=== PATIENT | male | born 1960 | race Caucasian/White ===

== ENCOUNTER 2020-07-29 16:10 | Emergency (ER) | payer OTHER ==
[~2020-07-29] VITALS: Ht 193 cm; Wt 141.5 kg
[2020-07-29 16:38] LABS: BASOPHILS ABSOLUTE AUTO 0.06 K/mm3 (0.00-0.23); BASOPHILS PERCENT AUTO 1 % (0-2); EOSINOPHILS ABSOLUTE AUTO 0.04 K/mm3 (0.00-0.68); EOSINOPHILS PERCENT AUTO 0 % (0-6); Hematocrit 52.1 % (37.0-53.0); Hemoglobin 17.7 g/dL (13.5-17.5); IMMATURE GRAN ABSOLUTE AUTO 0.08 K/mm3 (0.00-0.10); IMMATURE GRAN PERCENT AUTO 1 % (0-1); LYMPHOCYTES ABSOLUTE AUTO 2.03 K/mm3 (0.84-5.20); LYMPHOCYTES PERCENT AUTO 19 % (21-46); MONOCYTES ABSOLUTE AUTO 1.03 K/mm3 (0.16-1.47); MONOCYTES PERCENT AUTO 10 % (4-13); Mean Corpuscular HGB 31.5 pg (26.0-34.0); Mean Corpuscular Volume 93 fL (80-100); Mean Platelet Volume 11.3 fL (9.1-12.4); NEUTROPHILS ABSOLUTE AUTO 7.21 K/mm3 (1.96-9.15); NEUTROPHILS PERCENT AUTO 69 % (41-73); Platelet Count 261 K/mm3 (150-400); RDW Coefficient Variation 12.9 % (11.7-14.2); RDW Standard Deviation 43.7 fL (35.1-46.3); Red Blood Cell Count 5.62 M/mm3 (4.30-5.90); White Blood Cell Count 10.45 K/mm3 (4.00-11.30)
[2020-07-29 16:51] LABS: Alanine Aminotransfer (ALT/SGP 91 U/L (12-78); Alk Phos 101 U/L (50-136); Anion Gap 4 mmol/L (6-16); Aspartate Aminotrans (AST/SGOT 55 U/L (12-37); Bilirubin, Total 0.6 mg/dL (0.1-1.0); Blood Urea Nitrogen 28 mg/dL (8-24); Bun/Creatinine Ratio 20.1 (12.0-20.0); CO2, Blood 25 mmol/L (21-32); Calcium, Blood 9.6 mg/dL (8.5-10.1); Chloride, Blood 107 mmol/L (98-108); Creatinine, Blood 1.39 mg/dL (0.60-1.20); Globulin, Blood 4.1 g/dL (2.2-4.0); Glomerular Filtration Rate 55 (60-); Glucose, Blood 103 mg/dL (70-99); Potassium, Blood 4.9 mmol/L (3.5-5.5); Sodium, Blood 136 mmol/L (136-145); Total Protein, Blood 8.1 g/dL (6.4-8.2); Troponin I <0.015 ng/mL (0.000-0.040)
== END 2020-07-29 18:01 | disposition home or self-care (01) ==
LOC: ER 16:10
PROVIDERS: Emergency Medicine
DX: I48.0 Paroxysmal atrial fibrillation (principal)
CPT/HCPCS: 71045; 80053; 84484; 85025; 92960; 93005; 93010; 99285-25; J2704; J7030

== ENCOUNTER 2020-11-09 16:14 | Emergency (ER) | payer OTHER ==
[~2020-11-09] VITALS: Ht 195.6 cm; Wt 136.1 kg
[2020-11-09] MEDS ORDERED: METO100ER PO (18:07)
[2020-11-09] MEDS ORDERED: ALDACTONE25 MG PO (18:08)
[2020-11-09 18:27] LABS: Bun/Creatinine Ratio 17.5 (12.0-20.0); Calcium, Blood 8.5 mg/dL (8.5-10.1); Creatinine, Blood 1.89 mg/dL (0.60-1.20); Potassium, Blood 4.5 mmol/L (3.5-5.5)
== END 2020-11-10 00:03 | disposition home or self-care (01) ==
LOC: ER 16:14
PROVIDERS: Emergency Medicine
DX: U07.1 COVID-19 (principal); N28.9 Disorder of kidney and ureter, unspecified
CPT/HCPCS: 76770; 80048; 84484; 93005; 93010; 96360; 99285-25; M0243; Q0243

== ENCOUNTER 2021-09-30 07:15 | Day surgery (SDC) | payer OTHER ==
[~2021-09-30] VITALS: Ht 193 cm; Wt 145.7 kg
[~2021-09-30 07:15] MED LIST: ALDACTONE25 MG PO; ASPI81CH PO; CYCL10 PO; METO100ER PO
--- NOTE | 2021-09-30 08:09 | NUR ---
Patient up to Ambulate independently. Gait steady. Edie Paws warming gown applied. Surgical site prepped with 2% Chlorhexidine cloth wipe. History, Chart, Medications and Allergies reviewed before start of procedure.Lungs clear T/O to Auscultation. Patient confirms NPO status and agrees with scheduled surgery. Pre-Op teaching done. Pt verbalizes understanding. Patient States Post-Procedure ride home has been arranged. Patient reports completing Chlorhexadine shower X2 prior to admission to hospital.
--- NOTE | 2021-09-30 10:33 | NUR ---
SITTING UP EATING CRACKERS, PUDDING AND DRINKING JUICE. DRESSING CDI
--- NOTE | 2021-09-30 10:53 | NUR ---
Patient up to Ambulate independently. Gait steady. Discharge instructions reviewed with patient. Patient verbalizes understanding. Copy given to patient to take home. Discharged via wheelchair to private car for ride home [facility].
--- NOTE | 2021-09-30 11:04 | NUR ---
LATE ENTRY: DRESSING CDI
== END 2021-09-30 22:37 | disposition home or self-care (01) ==
LOC: ORSCMMR 07:15 → ORD 08:45 → ORSCMMR 08:45
PROVIDERS: Surgery
PROC: 0JB70ZZ Excision of Back Subcutaneous Tissue and Fascia, Open Approach (ICD-10-PCS; principal; 2021-09-30 08:45)
DX: D17.1 Benign lipomatous neoplasm of skin and subcutaneous tissue of trunk (principal); D22.5 Melanocytic nevi of trunk; I10 Essential (primary) hypertension; G47.33 Obstructive sleep apnea (adult) (pediatric); E66.9 Obesity, unspecified; Z68.39 Body mass index [BMI] 39.0-39.9, adult; Z79.899 Other long term (current) drug therapy; Z79.82 Long term (current) use of aspirin
CPT/HCPCS: 88304; J0690; J1100; J1885; J2250; J2405; J2704; J2710; J3010; J7120

== ENCOUNTER 2022-08-11 16:16 | Emergency (ER) | payer OTHER ==
[~2022-08-11] VITALS: Ht 195.6 cm; Wt 146.5 kg
[2022-08-11 16:47] LABS: BASOPHILS ABSOLUTE AUTO 0.04 K/mm3 (0.00-0.23); BASOPHILS PERCENT AUTO 1 % (0-2); EOSINOPHILS ABSOLUTE AUTO 0.03 K/mm3 (0.00-0.68); EOSINOPHILS PERCENT AUTO 0 % (0-6); Hematocrit 43.7 % (37.0-53.0); Hemoglobin 14.9 g/dL (13.5-17.5); IMMATURE GRAN ABSOLUTE AUTO 0.02 K/mm3 (0.00-0.10); IMMATURE GRAN PERCENT AUTO 0 % (0-1); LYMPHOCYTES ABSOLUTE AUTO 1.85 K/mm3 (0.84-5.20); LYMPHOCYTES PERCENT AUTO 24 % (21-46); MONOCYTES ABSOLUTE AUTO 0.73 K/mm3 (0.16-1.47); MONOCYTES PERCENT AUTO 10 % (4-13); Mean Corpuscular HGB 31.4 pg (26.0-34.0); Mean Corpuscular HGB Conc 34.1 g/dL (31.5-36.5); Mean Corpuscular Volume 92 fL (80-100); Mean Platelet Volume 11.4 fL (9.1-12.4); NEUTROPHILS ABSOLUTE AUTO 4.96 K/mm3 (1.96-9.15); NEUTROPHILS PERCENT AUTO 65 % (41-73); Platelet Count 185 K/mm3 (150-400); RDW Standard Deviation 44.1 fL (35.1-46.3); Red Blood Cell Count 4.74 M/mm3 (4.30-5.90); White Blood Cell Count 7.63 K/mm3 (4.00-11.30)
[2022-08-11 17:10] LABS: Albumin, Blood 3.7 g/dL (3.4-5.0); Albumin/Globulin Ratio 1.1 (0.8-1.8); Bilirubin, Total 0.7 mg/dL (0.1-1.0); Bun/Creatinine Ratio 18.9 (12.0-20.0); Calcium, Blood 9.3 mg/dL (8.5-10.1); Creatinine, Blood 1.27 mg/dL (0.60-1.20); Globulin, Blood 3.5 g/dL (2.2-4.0); Magnesium, Blood 2.5 mg/dL (1.6-2.4); Potassium, Blood 4.3 mmol/L (3.5-5.5); Total Protein, Blood 7.2 g/dL (6.4-8.2)
[2022-08-11 18:45] VITALS: BP 130/88
== END 2022-08-11 19:42 | disposition home or self-care (01) ==
LOC: ER 16:16
PROVIDERS: Emergency Medicine
DX: I48.91 Unspecified atrial fibrillation (principal)
CPT/HCPCS: 71046; 80053; 83735; 83880; 84484; 85025; 93005; 93010; 96374; 99285-25

== ENCOUNTER 2023-02-28 06:26 | Day surgery (SDC) | payer OTHER ==
[2023-02-28] MEDS ORDERED: METO100 PO (06:30)
[2023-02-28] MEDS ORDERED: CYCL10 PO (06:31)
[2023-02-28] MEDS ORDERED: WARF5 PO (06:31)
== END 2023-02-28 08:08 | disposition home or self-care (01) ==
LOC: MHTC 06:26 → ORSCMMR 06:26 → ORD 07:00 → ORSCMMR 07:00
DX: I48.0 Paroxysmal atrial fibrillation (principal); I10 Essential (primary) hypertension; Z79.01 Long term (current) use of anticoagulants
CPT/HCPCS: 92960; J2704

== ENCOUNTER 2023-12-25 11:21 | Inpatient (IN) | payer OTHER ==
[2023-12-25] VITALS (11 sets, daily range): BP systolic 109–150; BP diastolic 79–120
[~2023-12-25] VITALS: Ht 193 cm; Wt 140.1 kg
[~2023-12-25 11:21] MED LIST changes: +AMOCLA875 PO; +METO100 PO; +PRED20 PO; +WARF5 PO
[2023-12-25 11:49] LABS: BASOPHILS ABSOLUTE AUTO 0.05 K/mm3 (0.00-0.23); BASOPHILS PERCENT AUTO 1 % (0-2); EOSINOPHILS ABSOLUTE AUTO 0.01 K/mm3 (0.00-0.68); EOSINOPHILS PERCENT AUTO 0 % (0-6); Hematocrit 46.4 % (37.0-53.0); Hemoglobin 15.6 g/dL (13.5-17.5); IMMATURE GRAN ABSOLUTE AUTO 0.04 K/mm3 (0.00-0.10); IMMATURE GRAN PERCENT AUTO 0 % (0-1); LYMPHOCYTES ABSOLUTE AUTO 1.43 K/mm3 (0.84-5.20); LYMPHOCYTES PERCENT AUTO 14 % (21-46); MONOCYTES ABSOLUTE AUTO 0.97 K/mm3 (0.16-1.47); MONOCYTES PERCENT AUTO 9 % (4-13); Mean Corpuscular HGB 31.6 pg (26.0-34.0); Mean Corpuscular HGB Conc 33.6 g/dL (31.5-36.5); Mean Corpuscular Volume 94 fL (80-100); Mean Platelet Volume 11.5 fL (9.1-12.4); NEUTROPHILS ABSOLUTE AUTO 7.92 K/mm3 (1.96-9.15); NEUTROPHILS PERCENT AUTO 76 % (41-73); Platelet Count 199 K/mm3 (150-400); RDW Coefficient Variation 13.4 % (11.7-14.2); RDW Standard Deviation 46.2 fL (35.1-46.3); Red Blood Cell Count 4.93 M/mm3 (4.30-5.90); White Blood Cell Count 10.42 K/mm3 (4.00-11.30)
[2023-12-25 12:12] LABS: Albumin, Blood 3.7 g/dL (3.4-5.0); Albumin/Globulin Ratio 1.1 (0.8-1.8); Bilirubin, Total 1.3 mg/dL (0.1-1.0); Bun/Creatinine Ratio 19.8 (12.0-20.0); Calcium, Blood 8.9 mg/dL (8.5-10.1); Creatinine, Blood 1.01 mg/dL (0.60-1.20); Globulin, Blood 3.5 g/dL (2.2-4.0); Potassium, Blood 3.6 mmol/L (3.5-5.5); Total Protein, Blood 7.2 g/dL (6.4-8.2)
[2023-12-25 12:30] LABS: Influenza A, PCR NEGATIVE (NEGATIVE); Influenza B, PCR NEGATIVE (NEGATIVE); Resp Syncytial Virus, PCR NEGATIVE (NEGATIVE); SARS-Cov-2 (COVID-19) PCR, MMC NEGATIVE (NEGATIVE)
[2023-12-25] MEDS ORDERED: Diltiazem HCl 5 MG / ML 5ML Vial IV ONE ×2 (15:10→16:40)
[2023-12-25] MEDS ORDERED: Furosemide 10 MG / ML 2ML Vial IV ONE (16:45)
[2023-12-25] MEDS ORDERED: Acetaminophen 325 MG TABLET PO PRN (17:50)
[2023-12-25] MEDS ORDERED: FLU VACC TS2024-25(6MOS UP)/PF 45 MCG/0.5 ML SYRINGE IM ONE (17:50)
[2023-12-25 19:05] LABS: International Normalized Ratio 1.13
[2023-12-25] MEDS ORDERED: MULVITA PO (20:33)
[2023-12-25] MEDS ORDERED: C COMPLEX1000 M1 PO (20:33)
[2023-12-25] MEDS ORDERED: Aspir 8181 MG PO (20:33)
[2023-12-25] MEDS ORDERED: SPIR25 PO (20:35)
[2023-12-25] MEDS ORDERED: Docusate Sodium 100 MG Cap PO SCH (21:00)
--- NOTE | 2023-12-25 22:00 | NUR ---
ARRIVAL TO PCU: PT ARRIVED TO PCU-14 VIA [facility] AT APPROX 2015. PT ABLE TO STAND & TRANSFER SELF FROM [facility] TO BED. ABLE TO COMMUNICATE NEEDS W/ STAFF. PT ARRIVED W/ DILT GTT AT 10 MG/HR, HR 110-120'S. DILT GTT TITRATED DOWN TO 5 MG/HR AT 2122 DUE TO HR 70-80'S. AFIB ON TELE. SBP 100-150'S, DENIES CHEST PAIN/PRESSURE. RESPIRATIONS EVEN & UNLABORED, SPO2 >90% ON RA. ABLE TO AMBULATE TO RESTROOM TO VOID W/ SBA FOR LINE MANAGEMENT. FIRE SAFETY/IGNITION RISK ASSESSED; PT IS NEVER SMOKER, NO IGNITION SOURCES PRESENT ON ADMISSION. SIGNIFICANT EDUCATION PROVIDED ON AFIB, CARDIAC MEDICATION, AND ANTICOAGULANTS. PT REPORTS THAT "METOPROLOL CAUSES AFIB" AND THAT HIS HOME REMEDIES HAVE BEEN MAKING HIS HEART BEAT "SMOOTHER." PT REMAINS AGREEABLE TO DILT GTT AT THIS TIME. CALL LIGHT IN REACH, BED IN LOWEST POSITION.
[2023-12-26] VITALS (28 sets, daily range): BP systolic 122–180; BP diastolic 87–135
[2023-12-26 04:12] LABS: BASOPHILS ABSOLUTE AUTO 0.04 K/mm3 (0.00-0.23); BASOPHILS PERCENT AUTO 1 % (0-2); EOSINOPHILS ABSOLUTE AUTO 0.07 K/mm3 (0.00-0.68); EOSINOPHILS PERCENT AUTO 1 % (0-6); Hematocrit 42.3 % (37.0-53.0); Hemoglobin 14.2 g/dL (13.5-17.5); IMMATURE GRAN ABSOLUTE AUTO 0.04 K/mm3 (0.00-0.10); IMMATURE GRAN PERCENT AUTO 1 % (0-1); LYMPHOCYTES ABSOLUTE AUTO 1.85 K/mm3 (0.84-5.20); LYMPHOCYTES PERCENT AUTO 21 % (21-46); MONOCYTES ABSOLUTE AUTO 0.85 K/mm3 (0.16-1.47); MONOCYTES PERCENT AUTO 10 % (4-13); Mean Corpuscular HGB 31.1 pg (26.0-34.0); Mean Corpuscular HGB Conc 33.6 g/dL (31.5-36.5); Mean Corpuscular Volume 93 fL (80-100); Mean Platelet Volume 11.4 fL (9.1-12.4); NEUTROPHILS ABSOLUTE AUTO 6.01 K/mm3 (1.96-9.15); NEUTROPHILS PERCENT AUTO 68 % (41-73); Platelet Count 160 K/mm3 (150-400); RDW Coefficient Variation 13.4 % (11.7-14.2); RDW Standard Deviation 45.8 fL (35.1-46.3); Red Blood Cell Count 4.56 M/mm3 (4.30-5.90); White Blood Cell Count 8.86 K/mm3 (4.00-11.30)
--- NOTE | 2023-12-26 05:24 | NUR ---
END OF SHIFT NOTE: NO ACUTE EVENTS FOLLOWING ARRIVAL TO PCU. PT A/OX4, ABLE TO COMMUNICATE NEEDS W/ STAFF. DILT GTT INFUSING AT 10 MG/HR W/ HR MAINTAINING 90-110'S. BP ELEVATED W/ SBP 130-160'S. DENIES CHEST PAIN/PRESSURE/PALPITATIONS. SPO2 >90% ON RA WHILE AWAKE, 3L VIA NC WHILE ASLEEP DUE TO FREQUENT DESATURATIONS. PT UP TO BATHROOM W/ SBA FOR LINE MANAGEMENT OVERNIGHT, >1100ML OUTPUT. ABLE TO REPOSITION SELF INDEPENDENTLY IN BED. NO OTHER NEEDS AT THIS TIME, CALL LIGHT IN REACH.
[2023-12-26 05:57] LABS: Albumin, Blood 3.4 g/dL (3.4-5.0); Albumin/Globulin Ratio 1.1 (0.8-1.8); Bilirubin, Total 1.4 mg/dL (0.1-1.0); Bun/Creatinine Ratio 19.3 (12.0-20.0); Calcium, Blood 8.6 mg/dL (8.5-10.1); Creatinine, Blood 0.93 mg/dL (0.60-1.20); Globulin, Blood 3.1 g/dL (2.2-4.0); Potassium, Blood 3.2 mmol/L (3.5-5.5); Total Protein, Blood 6.5 g/dL (6.4-8.2)
[2023-12-26] MEDS ORDERED: Potassium Chloride 20 MEQ TabCR PO ONE ×2 (08:00→08:40)
[2023-12-26] MEDS ORDERED: Multivitamins 1 Tab PO SCH (09:00)
[2023-12-26] MEDS ORDERED: Aspirin 81 MG TabEC PO SCH (09:00)
[2023-12-26] MEDS ORDERED: Spironolactone 25 MG Tab PO SCH (09:00)
[2023-12-26] MEDS ORDERED: Ascorbic Acid 500 MG Tab PO SCH (09:00)
[2023-12-26] MEDS ORDERED: Metoprolol Succinate 50 MG TABCR PO SCH (09:00)
--- NOTE | 2023-12-26 18:33 | NUR ---
SHIFT SUMMARY; ASSUMED CARE AT 0700. A/A/OX4. 3L 02 PRN FOR SOB. AMBULATING TO RESTROOM INDEPENDANTLY. SAT IN RECLINER CHAIR MOST OF SHIFT. FAMILY AT BEDSIDE. AGREES TO TAKE METOPROLOL AND BLOOD THINNER FOR AFIB AFTER DISCUSSING WITH DOCTORS. ARON DC'D AT [address] JOSUE. WILL CONTINUE TO MONITOR. VSS, AFIB RATE 90-100. WILL CONTINUE TO MONITOR AND TREAT UNTIL CHANGE OF SHIFT.
[2023-12-26] MEDS ORDERED: Apixaban 5 MG Tab PO SCH (19:00)
[2023-12-26] MEDS ORDERED: Melatonin 5 MG Tablet PO PRN (20:20)
[2023-12-27 00:30] VITALS: BP 136/109
[2023-12-27] MEDS ORDERED: HyDROXyzine HCl 25 MG Tab PO PRN (02:55)
--- NOTE | 2023-12-27 03:49 | NUR ---
UPDATE 0300 PT UP TO EOB, TOOK OFF TELE BOX AND SPO2 MONITOR, WELL OXYGEN. THIS RN IN ROOM TO ASSESS PT AND PLACE CORDS AND 02 BACK ON PT. PT UP AT EOB, STATES HE "IS TIRED BUT CANNOT SLEEP" AND "CAN'T STOP WATCHING THE MONITOR". PT APPEARS ANXIOUS AND UNABLE TO REST. EDUCATION PROVIDED ON EQUIPMENT AND NEED FOR MONITORING; PT STATES HE DOES NOT WANT IT ON. THIS RN ABLE TO PLACE TELE BACK ON PT, BUT PT DID NOT WANT OXYGEN OR SPO2 MONITOR PLACED BACK ON. EDUCATION REINFORCED, PT VERBALIZES UNDERSTANDING. PT IRRITABLE WITH STAFF D/T "NO SLEEP" AND "ALL THE CORDS". THIS RN ASKED IF PT WANTS TO TRY MEDICATION FOR SLEEP AND ANXIETY, PT AGREEABLE. RESIDENT NOTIFIED. ATARAX PER EMAR ORDER BY RESIDENT AND THIS RN ADMINISTERED. THIS RN WILL REATTEMPTED TO PLACE O2 AND SPO2 MONITOR WHEN PT CALMS TO SEE IF PT IS AGREEABLE.
[2023-12-27 04:15] VITALS: BP 158/98
--- NOTE | 2023-12-27 06:39 | NUR ---
SHIFT SUMMARY PT A&O X4, VSS; SBP 130 - 150'S, REMAINS IN AFIB - AT BEGINNING OF SHIFT PT HR 100'S TO HIGH 1 TEENS, THE SHIFT WENT ON PT HR TRENDING UPWARD TO 120'S. TOUCHING INTO 130 - 140'S WITH ACTIVITY. PT WITH DYSPNEA UPON EXERTION AND WITH INCREASED HR, OTHERWISE PT DENIES SX. NO EVENTS OF CP/PRESSURE, DIZZINESS, PALPITATIONS OR N/V. PT DENIES ALL SX AND STATES "IS OK". ALTHOUGH AT TIMES THIS RN NOTES INCREASED WOB OR PALLOR. AFEBRILE, RA WHILE AWAKE. PT ON 3 LPM WHILE RESTING OR WITH INCREASED WOB. PT DID NOT WANT TO "CONTINUE WEARING O2 OR CORDS/WIRES". SEE PREVIOUS NURSING NOTE FOR DETAILS. PT TOOK O2 AND MONITORS ON AND OFF THROUGHOUT THE NIGHT. PT ONLY ADMITS TO "BEING TIRED DUE TO LACK OF SLEEP FOR SEVERAL DAYS". PT ANXIOUS THROUGHOUT THE NIGHT; MELATONIN AND ATARAX PER EMAR WITH MODERATE EFFECT. PT UP AND DOWN THROUGHOUT THE NIGHT, FROM BED TO CHAIR, AND TO EOB. WHEN RN IN ROOM, PT STATES HE IS FINE AND DENIES ANYTHING. PT HAD A SHOWER THIS SHIFT, AMBULATING TO RESTROOM INDEPENDENTLY. APPROX. 2000 MLS UOP THIS SHIFT. ABLE TO MAKE NEEDS KNOWN, CALL LIGHT IN REACH. WILL UPDATE ONCOMING RN. PT EDUCATED ON MEDICATIONS AND IMPORTANCE, TREATMENT PLAN, AND ON MONITORS AND 02, WELL IMPORTANCE OF THESE. VERBALIZED UNDERSTANDING.
[2023-12-27 07:44] LABS: BASOPHILS ABSOLUTE AUTO 0.03 K/mm3 (0.00-0.23); BASOPHILS PERCENT AUTO 0 % (0-2); EOSINOPHILS ABSOLUTE AUTO 0.02 K/mm3 (0.00-0.68); EOSINOPHILS PERCENT AUTO 0 % (0-6); Hematocrit 45.5 % (37.0-53.0); Hemoglobin 15.2 g/dL (13.5-17.5); IMMATURE GRAN ABSOLUTE AUTO 0.04 K/mm3 (0.00-0.10); IMMATURE GRAN PERCENT AUTO 0 % (0-1); LYMPHOCYTES ABSOLUTE AUTO 1.93 K/mm3 (0.84-5.20); LYMPHOCYTES PERCENT AUTO 20 % (21-46); MONOCYTES ABSOLUTE AUTO 0.98 K/mm3 (0.16-1.47); MONOCYTES PERCENT AUTO 10 % (4-13); Mean Corpuscular HGB 31.4 pg (26.0-34.0); Mean Corpuscular HGB Conc 33.4 g/dL (31.5-36.5); Mean Corpuscular Volume 94 fL (80-100); Mean Platelet Volume 11.9 fL (9.1-12.4); NEUTROPHILS ABSOLUTE AUTO 6.59 K/mm3 (1.96-9.15); NEUTROPHILS PERCENT AUTO 69 % (41-73); Platelet Count 180 K/mm3 (150-400); RDW Coefficient Variation 13.4 % (11.7-14.2); RDW Standard Deviation 45.9 fL (35.1-46.3); Red Blood Cell Count 4.84 M/mm3 (4.30-5.90); White Blood Cell Count 9.59 K/mm3 (4.00-11.30)
[2023-12-27 08:24] LABS: Albumin, Blood 3.6 g/dL (3.4-5.0); Albumin/Globulin Ratio 1.1 (0.8-1.8); Bilirubin, Total 1.4 mg/dL (0.1-1.0); Bun/Creatinine Ratio 18.6 (12.0-20.0); Calcium, Blood 9.3 mg/dL (8.5-10.1); Creatinine, Blood 0.97 mg/dL (0.60-1.20); Globulin, Blood 3.2 g/dL (2.2-4.0); Potassium, Blood 3.7 mmol/L (3.5-5.5); Total Protein, Blood 6.8 g/dL (6.4-8.2)
[2023-12-27] MEDS ORDERED: Empagliflozin 10 MG TAB PO SCH (09:00)
[2023-12-27] MEDS ORDERED: Metoprolol Succinate 50 MG TABCR PO SCH ×2 (09:00)
[2023-12-27] MEDS ORDERED: Furosemide 10 MG/ML 4ML Vial IV SCH (09:00)
[2023-12-27 10:00] VITALS: BP 130/94
[2023-12-27] MEDS ORDERED: Sacubitril/Valsartan 24 MG-26 MG Tab PO SCH ×2 (10:00)
[2023-12-27 12:30] VITALS: BP 117/91
--- NOTE | 2023-12-27 17:31 | NUR ---
SHIFT SUMMARY PT A+O X4, HR HAS BEEN TRENDING IN THE LOW 100s, AT TIMES TOUCHING THE 120s. PT WAS SEEN BY CARDIOLOGY AND HOSPITALIST TO DICUSS PLAN OF CARE. PT APPREHENSIVE TO MEDICATION MANAGMENT OR PLAN OF CARE PRESENTED. CARDIOLOGY FUTHER DISSCUSSED PATIENT EJECTION FRACTION W/ PT AND FAMILY, AND WHAT MAY HAPPEN W/ OUT MEDICATION MANAGMENT. AFTER MUCH DISCUSSTION, PT AGREEABLE TO MOVE FORWARD W/ PLAN OF CARE. PT IS ABLE TO STAND AND TRANSFER TO CHAIR AND USE BATHROOM UNASSISTED. PT UP TO CHAIR FOR ALL MEALS. FAMILY HAS REMAINED AT BEDSIDE ALL DAY. PT ABLE TO MAKE NEEDS KNOWN, CALL LIGHT IN REACH. WILL CONTINUE TO MONITOR UNTIL BEDSIDE SHIFT REPORT.
[2023-12-27 20:42] VITALS: BP 139/92
[2023-12-27 23:28] VITALS: BP 110/92
--- NOTE | 2023-12-28 03:01 | NUR ---
SHIFT SUMMARY NEURO: A/OX4 CARDIAC: AFIB. TACHY. BLE EDEMA. ORTHOPNEIC. LUNGS: ON 4L NC AT NIGHT. NO CPAP ORDERS A THIS TIME. GI/: LAST BM 12/24, NO PRN'S.
[2023-12-28 03:54] VITALS: BP 118/90
[2023-12-28 07:53] LABS: BASOPHILS ABSOLUTE AUTO 0.04 K/mm3 (0.00-0.23); BASOPHILS PERCENT AUTO 1 % (0-2); EOSINOPHILS ABSOLUTE AUTO 0.01 K/mm3 (0.00-0.68); EOSINOPHILS PERCENT AUTO 0 % (0-6); Hematocrit 47.9 % (37.0-53.0); Hemoglobin 15.9 g/dL (13.5-17.5); IMMATURE GRAN ABSOLUTE AUTO 0.04 K/mm3 (0.00-0.10); IMMATURE GRAN PERCENT AUTO 1 % (0-1); LYMPHOCYTES ABSOLUTE AUTO 2.04 K/mm3 (0.84-5.20); LYMPHOCYTES PERCENT AUTO 24 % (21-46); MONOCYTES ABSOLUTE AUTO 0.88 K/mm3 (0.16-1.47); MONOCYTES PERCENT AUTO 11 % (4-13); Mean Corpuscular HGB 31.4 pg (26.0-34.0); Mean Corpuscular HGB Conc 33.2 g/dL (31.5-36.5); Mean Corpuscular Volume 95 fL (80-100); Mean Platelet Volume 11.3 fL (9.1-12.4); NEUTROPHILS ABSOLUTE AUTO 5.38 K/mm3 (1.96-9.15); NEUTROPHILS PERCENT AUTO 64 % (41-73); Platelet Count 187 K/mm3 (150-400); RDW Coefficient Variation 13.4 % (11.7-14.2); RDW Standard Deviation 46.5 fL (35.1-46.3); Red Blood Cell Count 5.06 M/mm3 (4.30-5.90); White Blood Cell Count 8.39 K/mm3 (4.00-11.30)
[2023-12-28 08:15] LABS: Albumin, Blood 3.3 g/dL (3.4-5.0); Bilirubin, Total 1.3 mg/dL (0.1-1.0); Bun/Creatinine Ratio 16.8 (12.0-20.0); Creatinine, Blood 1.19 mg/dL (0.60-1.20); Globulin, Blood 3.3 g/dL (2.2-4.0); Potassium, Blood 3.6 mmol/L (3.5-5.5); Total Protein, Blood 6.6 g/dL (6.4-8.2)
[2023-12-28 10:23] VITALS: BP 123/86
[2023-12-28 12:08] VITALS: BP 101/86
[2023-12-28 12:34] LABS: International Normalized Ratio 1.16; Prothrombin Time Results 12.3 Sec (9.7-11.5)
[2023-12-28] MEDS ORDERED: Heparin Sodium,Porcine/0.5 NS 500 ML IV SCH (12:55)
--- NOTE | 2023-12-28 14:51 | NUR ---
Pt denies headache he has chronic ringing in his ears. Denies shest pain, has been having some constipation. He has been sleeping more and greater fatigue. De denies falls but ambulating less. Will follow up with him on his symptoms. He has a directive and POA and trust and decision makers.
[2023-12-28 15:41] VITALS: BP 113/79
[2023-12-28] MEDS ORDERED: Furosemide 10 MG / ML 2ML Vial IV SCH (18:00)
--- NOTE | 2023-12-28 18:10 | NUR ---
End of Shift Pt A&O x4. VSS. Spo2 > 92% on RA while awake. Pt requiring 2L NC while sleeping d/t desat to mid 80s while sleeping on RA. Pt denying feeling SOB. Monitor showing Afib, HR 80s-110s. Pt agreeable to taking medications this shift & now potentially agreeable to procedures as needed. GEOVANNA garber held this AM per MD order. Heparin gtt initiated per MD order/pharmacy, see EMAR.
[2023-12-28 20:10] VITALS: BP 118/105
[2023-12-28] MEDS ORDERED: Dose Adjust by Pharmacy XX STA ×3 (20:16→20:23)
[2023-12-28 23:36] VITALS: BP 97/72
[2023-12-29 02:28] LABS: BASOPHILS ABSOLUTE AUTO 0.06 K/mm3 (0.00-0.23); BASOPHILS PERCENT AUTO 1 % (0-2); EOSINOPHILS ABSOLUTE AUTO 0.59 K/mm3 (0.00-0.68); EOSINOPHILS PERCENT AUTO 6 % (0-6); Hematocrit 49.3 % (37.0-53.0); Hemoglobin 16.5 g/dL (13.5-17.5); IMMATURE GRAN ABSOLUTE AUTO 0.06 K/mm3 (0.00-0.10); IMMATURE GRAN PERCENT AUTO 1 % (0-1); LYMPHOCYTES ABSOLUTE AUTO 2.85 K/mm3 (0.84-5.20); LYMPHOCYTES PERCENT AUTO 27 % (21-46); MONOCYTES ABSOLUTE AUTO 0.93 K/mm3 (0.16-1.47); MONOCYTES PERCENT AUTO 9 % (4-13); Mean Corpuscular HGB 31.4 pg (26.0-34.0); Mean Corpuscular HGB Conc 33.5 g/dL (31.5-36.5); Mean Corpuscular Volume 94 fL (80-100); Mean Platelet Volume 11.6 fL (9.1-12.4); NEUTROPHILS ABSOLUTE AUTO 6.08 K/mm3 (1.96-9.15); NEUTROPHILS PERCENT AUTO 57 % (41-73); Platelet Count 214 K/mm3 (150-400); RDW Coefficient Variation 13.4 % (11.7-14.2); RDW Standard Deviation 46.3 fL (35.1-46.3); Red Blood Cell Count 5.25 M/mm3 (4.30-5.90); White Blood Cell Count 10.57 K/mm3 (4.00-11.30)
[2023-12-29 03:00] LABS: Albumin, Blood 3.3 g/dL (3.4-5.0); Bun/Creatinine Ratio 18.3 (12.0-20.0); Calcium, Blood 8.8 mg/dL (8.5-10.1); Creatinine, Blood 1.26 mg/dL (0.60-1.20); Globulin, Blood 3.4 g/dL (2.2-4.0); Potassium, Blood 3.7 mmol/L (3.5-5.5); Total Protein, Blood 6.7 g/dL (6.4-8.2)
[2023-12-29] MEDS ORDERED: Dose Adjust by Pharmacy XX STA ×2 (03:21→10:19)
[2023-12-29 03:35] VITALS: BP 97/79
--- NOTE | 2023-12-29 06:21 | NUR ---
SHIFT SUMMARY PATIENT ALERT AND ORIENTED x4. ABLE TO MAKE NEEDS KNOWN TO STAFF. DAUGHTER AT BEDSIDE DURING THE NIGHT. BP STABLE. ON TELE READING AFIB 100-120s. ON RA WHILE AWAKE, 2L NEEDED WHILE SLEEPING, SPO2 >90%. PATIENT INDEPENDENT IN THE ROOM. PATIENT AMBULATING TO THE BATHROOM, DECLINING TO USE URINAL AT TIMES REGARDLESS OF EDUCATION GIVEN FOR ACCURATE I/Os. PATIENT REPORTS URGENCY WITH URINATION AND HIS DAUGHTER STATES "HE DOESN'T LIKE TO USE THE JUG". EDUCATION PROVIDED. PATIENT DOES REPORT MULTIPLE TRIPS TO THE BATHROOM WITH SIGNIFICANT OUTPUT PER HIM. NPO SINCE 0000 FOR POSSIBILITY OF ANGIO. OTHERWISE, NO CHANGES DURING THE NIGHT. WILL REPORT TO DAY SHIFT RN.
[2023-12-29 08:24] VITALS: BP 112/75
[2023-12-29] MEDS ORDERED: Verapamil HCL 2.5 MG/ML 2ML Injection ONE (10:09)
[2023-12-29] MEDS ORDERED: Heparin Sodium 1000 Units/ML 10ML MDV ONE (10:10)
[2023-12-29] MEDS ORDERED: NS 250 ML IV ONE (10:10)
[2023-12-29] MEDS ORDERED: NS 1,000 ML IV ONE ×2 (10:10→11:14)
[2023-12-29] MEDS ORDERED: Nitroglycerin 2 MG/20 ML BTL ONE (10:10)
[2023-12-29] MEDS ORDERED: FentaNYL Citrate 50 MCG/ML 2 ML Injection ONE (11:14)
[2023-12-29] MEDS ORDERED: Midazolam HCl 1MG / ML 2ML Vial ONE (11:14)
--- NOTE | 2023-12-29 11:44 | NUR ---
UPDATE: PT TO [employer] @1114. S.
[2023-12-29 11:45] VITALS: BP 103/80
[2023-12-29 13:24] VITALS: BP 109/74
[2023-12-29 13:30] VITALS: BP 108/96
--- NOTE | 2023-12-29 14:02 | NUR ---
UPDATE: PT FROM [employer]. VSS. TR BAND IN PLACE, SITE OVERALL C/D/I.
--- NOTE | 2023-12-29 17:00 | NUR ---
SHIFT SUMMARY: PT ALERT AND ORIENTED X4, ABLE TO FOLLOW COMMANDS AND MAKE NEEDS KNOWN. STRENGTH EQUAL BILATERALLY. BP AND HR STABLE. AFEBRILE. SPO2 >94% ON RA. PT WITH ANGIOGRAM THIS AFTERNOON, TOLERATED WELL. NO STENTS PLACED. R. RADIAL SITE RECOVERED, ARM BOARD IN PLACE, MINIMAL BRUISING NOTED. DENIES CP/PRESSURE. ABD SOFT, BOWEL SOUNDS +. PEDAL PULSES FAINT, +3 EDEMA IN BLE. PT DIUERISING WELL, APPROX 1600ML OF URINARY OUTPUT THIS SHIFT. NO BM. DAUGHTER AT BEDSDIDE THROUGHOUT THE DAY, UPDATED FREQUENTLY OF PT CARE. PT CURRENTLY IN RECLINER, EATING DINNER. POSSIBLE DISHCARGE IN AM. CALL LIGHT IN REACH, WILL REPORT TO ONCOMING RN.
[2023-12-29 20:00] VITALS: BP 96/80
[2023-12-29] MEDS ORDERED: Apixaban 5 MG Tab PO SCH (21:00)
[2023-12-30 00:30] VITALS: BP 114/96
[2023-12-30 04:02] LABS: BASOPHILS ABSOLUTE AUTO 0.05 K/mm3 (0.00-0.23); BASOPHILS PERCENT AUTO 1 % (0-2); EOSINOPHILS ABSOLUTE AUTO 0.06 K/mm3 (0.00-0.68); EOSINOPHILS PERCENT AUTO 1 % (0-6); Hematocrit 47.6 % (37.0-53.0); Hemoglobin 15.9 g/dL (13.5-17.5); IMMATURE GRAN ABSOLUTE AUTO 0.03 K/mm3 (0.00-0.10); IMMATURE GRAN PERCENT AUTO 0 % (0-1); LYMPHOCYTES PERCENT AUTO 26 % (21-46); MONOCYTES ABSOLUTE AUTO 1.01 K/mm3 (0.16-1.47); MONOCYTES PERCENT AUTO 11 % (4-13); Mean Corpuscular HGB 31.2 pg (26.0-34.0); Mean Corpuscular HGB Conc 33.4 g/dL (31.5-36.5); Mean Corpuscular Volume 94 fL (80-100); Mean Platelet Volume 11.9 fL (9.1-12.4); NEUTROPHILS PERCENT AUTO 61 % (41-73); Platelet Count 198 K/mm3 (150-400); RDW Coefficient Variation 13.3 % (11.7-14.2); RDW Standard Deviation 46.1 fL (35.1-46.3); Red Blood Cell Count 5.09 M/mm3 (4.30-5.90); White Blood Cell Count 8.95 K/mm3 (4.00-11.30)
[2023-12-30 04:30] VITALS: BP 113/92
[2023-12-30 04:31] LABS: Albumin, Blood 3.2 g/dL (3.4-5.0); Bilirubin, Total 1.2 mg/dL (0.1-1.0); Calcium, Blood 8.9 mg/dL (8.5-10.1); Creatinine, Blood 1.18 mg/dL (0.60-1.20); Globulin, Blood 3.3 g/dL (2.2-4.0); Potassium, Blood 3.3 mmol/L (3.5-5.5); Total Protein, Blood 6.5 g/dL (6.4-8.2)
--- NOTE | 2023-12-30 05:56 | NUR ---
SHIFT SUMMARY PT A&O X4, VSS; SBP 96 - 114, AFIB WITH RATE IN MID 90'S - 100'S, AFEBRILE, SPO2 WNL ON RA. OF NOTE PT SBP 96 AT START OF SHIFT, PROVIDER NOTIFIED, ORDERS TO HOLD PM DOSE OF ENTRESTO. NO EVENTS OF CP/PRESSURE, DIZZINESS, PALPITATIONS, N/B. PT REPORTS SOME DYSPNEA WITH EXERTION, BUT REPORTS IT IS IMPROVING. R RADIAL SITE FULLY RECOVERED, TEGADERM AND ARMBOARD IN PLACE. SITE WNL; NO PAIN, HEMATOMA, NUMBNESS/TINGLING. CAP REFILL WNL. PT EDUCATED ON NOT USING OR PLACING PRESSURE TO THAT ARM, PT VERBALIZED UNDERSTANDING. PT USING RESTROOM INDEPENDENTLY WITH APPROX; 900 MLS OUT THIS SHIFT. F.R IN PLACE. PT DENIES ANY ISSUES OR CONCERNS GI/. ABLE TO MAKE NEEDS KNOWN, CALL LIGHT IN REACH. PT SLEPT WELL THIS SHIFT. WILL UPDATE ONCOMING RN.
[2023-12-30] MEDS ORDERED: Potassium Chloride 20 MEQ TabCR PO ONE (07:00)
[2023-12-30 08:48] VITALS: BP 107/77
[2023-12-30] MEDS ORDERED: Sacubitril/Valsartan 24 MG-26 MG Tab PO SCH (09:00)
[2023-12-30] MEDS ORDERED: JARDIANCE10 MG PO (12:51)
[2023-12-30] MEDS ORDERED: ENTRESTO 24 MG1 EACH PO (12:51)
[2023-12-30] MEDS ORDERED: ELIQUIS5 M2 PO (12:52)
[2023-12-30] MEDS ORDERED: FURO40 PO (12:52)
--- NOTE | 2023-12-30 13:52 | NUR ---
DISCHARGE: PT D/C VIA WHEELCHAIR AT 1344. DISCHARGE INSTRUCTIONS AND EDUCATION PROVIDED BOTH TO PT AND FAMILY. ALL BELONINGS WITH PT.
== END 2023-12-30 13:37 | disposition home or self-care (01) | DRG 286 ==
LOC: ER 11:21 → PCU 11:22 → ER 11:22 → PCU 20:14
PROVIDERS: Family Medicine Adult Medicine; Physician Assistant; Registered Nurse; ADMIT Student in an Organized Health Care Education/Training Program
PROC: 4A023N6 Measurement of Cardiac Sampling and Pressure, Right Heart, Percutaneous Approach (ICD-10-PCS; principal; 2023-12-29)
PROC: B2111ZZ Fluoroscopy of Multiple Coronary Arteries using Low Osmolar Contrast (ICD-10-PCS; 2023-12-29)
DX: I48.0 Paroxysmal atrial fibrillation (principal); I50.21 Acute systolic (congestive) heart failure; I11.0 Hypertensive heart disease with heart failure; I27.20 Pulmonary hypertension, unspecified; I42.8 Other cardiomyopathies; E87.6 Hypokalemia; E26.9 Hyperaldosteronism, unspecified; Z88.8 Allergy status to other drugs, medicaments and biological substances; Z79.82 Long term (current) use of aspirin; Z79.899 Other long term (current) drug therapy; Z91.148 Patient's other noncompliance with medication regimen for other reason; E66.9 Obesity, unspecified; Z68.39 Body mass index [BMI] 39.0-39.9, adult
CPT/HCPCS: 0241U; 36415; 71046; 76937; 80053; 83735; 83880; 84145; 84484; 85025; 85610; 85730; 93005; 93010; 93456; 96365; 96375; 96376; 99152; 99153; 99284-25; A9270; C1769; C1887; C1894; C8929; G0378; J1644; J1940; J2250; J3010; J7030; J7050; Q9957; Q9967